=== PATIENT | female | born 1970 | race Caucasian/White ===

== ENCOUNTER → 2019-07-07 | Outpatient (REF) | payer OTHER | LOC: M SFHCPLAZ 17:03 | PROVIDERS: ATTEND Family Medicine | DX: Z12.4 Encounter for screening for malignant neoplasm of cervix (principal) | CPT/HCPCS: 87624; G0123 ==

== ENCOUNTER → 2019-08-11 | Outpatient (REF) | payer OTHER ==
[2019-08-11 12:15] LABS: ALBUMIN 3.9 GM/DL (3.2-5.2); ALT/SGPT 29 U/L (12-78); BILIRUBIN,TOTAL 0.4 MG/DL (0.2-1.0); BLOOD UREA NITROGEN 8 MG/DL (7-18); CALCIUM LEVEL 9.1 MG/DL (8.5-10.1); CARBON DIOXIDE LEVEL 28 MEQ/L (21-32); CHLORIDE LEVEL 109 MEQ/L (98-107); CHOLESTEROL LEVEL 184 MG/DL (<200); CHOLESTEROL RISK RATIO 4.279 (<5); CREATININE FOR GFR 0.65 MG/DL (0.55-1.30); GLOMERULAR FILTRATION RATE > 60.0 (>58); GLUCOSE, FASTING 67 MG/DL (70-100); HDL CHOLESTEROL 43 MG/DL (>40); LDL CHOLESTEROL 112 MG/DL (<100); NON-HDL-C 141 MG/DL; SODIUM LEVEL 142 MEQ/L (136-145); TOTAL PROTEIN 7.2 GM/DL (6.4-8.2); TRIGLYCERIDES LEVEL 147 MG/DL (<150)
[2019-08-11 14:05] LABS: TOTAL 25(OH) VITAMIN D 33.6 NG/ML (30.0-100.0)
== END ==
LOC: M PLALAB 08:28
PROVIDERS: ATTEND Family Medicine
DX: Z13.1 Encounter for screening for diabetes mellitus (principal); Z13.220 Encounter for screening for lipoid disorders; E55.9 Vitamin D deficiency, unspecified

== ENCOUNTER → 2020-04-04 | Outpatient (REF) | payer OTHER | LOC: M SFHCPLAZ 11:39 | PROVIDERS: ATTEND Family Medicine | DX: R10.2 Pelvic and perineal pain (principal) ==

== ENCOUNTER → 2020-04-11 | Outpatient (CLI) | payer OTHER ==
--- NOTE | 2020-04-11 09:47 | REP ---
INDICATION: R10.2 PELVIC PAIN COMPARISON: None. TECHNIQUE: Transabdominal pelvic ultrasound followed by transvaginal examination for better evaluation of the endometrium and adnexa with color Doppler evaluation of the ovaries. FINDINGS: Bladder is unremarkable and measures 8.1 x 5.1 x 2.0 cm (43 cc).. Heterogeneous retroverted myomatous uterus measures 7.6 x 5.5 x 6.2 cm. Multiple fibroids are identified including anterior fundal fibroid measuring 4.0 x 4.0 x 2.9 cm, right anterior intramural fibroid measuring 2.6 x 3.2 x 3.3 cm, and posterior left intramural fibroid measuring 2.7 x 2.8 x 2.6 cm. Ovaries are normal in vascularity without torsion. Right ovary measures 3.8 x 2.7 x 3.3 cm (RI 0.66) and includes 3.7 cm simple cyst. Left ovary measures 2.1 x 0.9 x 1.2 cm (RI 0.51). No pelvic fluid or adnexal mass lesion. IMPRESSION: Heterogeneous myomatous uterus. <Electronically signed by Aaron Candelario > 04/11/20 [id number]
== END ==
LOC: M WHC 08:05
PROVIDERS: ATTEND Family Medicine
DX: R10.2 Pelvic and perineal pain (principal); D25.1 Intramural leiomyoma of uterus; N83.201 Unspecified ovarian cyst, right side

== ENCOUNTER → 2020-05-02 | Outpatient (CLI) | payer OTHER | LOC: M WHC 14:34 | PROVIDERS: ATTEND Obstetrics & Gynecology | DX: Z12.31 Encounter for screening mammogram for malignant neoplasm of breast (principal) ==

== ENCOUNTER → 2020-09-09 | Outpatient (CLI) | payer OTHER ==
--- NOTE | 2020-09-09 09:50 | REP ---
INDICATION: N83.201 RT OVARIAN CYST. COMPARISON: Comparison study April 11, 2020.. TECHNIQUE: Transabdominal and transvaginal scanning were performed. FINDINGS: Uterine dimensions are normal at 6.8 x 4.5 x 6.1 cm. Endometrial echo is 0.3 cm thick and centrally placed. No free fluid is seen in the cul-de-sac. Visualized bladder islas are smooth. There are multiple uterine leiomyomas including a left-sided lesion measuring 3.6 cm in greatest diameter, a mid uterine fibroid measuring 4.3 cm in greatest diameter and a right uterine fibroid measuring 3.4 cm. These are felt to be unchanged. The right ovary has dimensions of 3.7 x 3.0 x 3.9 cm. It's Doppler flow is normal with a resistive index of 0.5. There is a cyst in the right ovary measuring 3.1 x 2.4 x 2.7 cm. This appears to be a simple cyst and is essentially unchanged from the prior study. The left ovary is not seen transabdominally or transvaginally today. No left adnexal mass or cyst is seen.. IMPRESSION: Multiple uterine leiomyomas unchanged from the prior study. There is a simple cyst in the right ovary which is also unchanged measuring 3.1 cm in greatest diameter.. <Electronically signed by Eugene Reyna > 09/09/20 09
== END ==
LOC: M WHC 08:49
PROVIDERS: ATTEND Family Medicine
DX: N83.201 Unspecified ovarian cyst, right side (principal); D25.9 Leiomyoma of uterus, unspecified